=== PATIENT | male | born 1970 | race American Indian/Alaskan Native ===

== ENCOUNTER 2018-10-28 19:01 | Emergency (ER) | payer OTHER ==
[2018-10-28 19:20] VITALS: BP 136/81
[2018-10-28] MEDS ORDERED: NACL 0.9% 1000 ML 1,000 ML IV ONE (19:36)
[2018-10-28] MEDS ORDERED: DECADRON IV ONE (19:36)
[2018-10-28] MEDS ORDERED: PEPCID IV ONE (19:36)
[2018-10-28] MEDS ORDERED: BENADRYL IV ONE (19:36)
--- NOTE | 2018-10-28 20:19 | Emergency Department Report ---
ED Allergic Reaction HPI - General Chief complaint: Allergic Reaction Stated complaint: ALLERGIC REACTION/SWOLLEN FACE Time Seen by Provider: 10/28/18 19:36 Source: patient Mode of arrival: Ambulatory Limitations: No Limitations - History of Present Illness Initial Comments: This is a 48-year-old male nontoxic, well nourished in appearance, no acute sig ns of distress presents to the ED with c/o of facial swelling and itching. Patient states he used a bread cream last night and then wake up this morning with facial swelling in the bread area and itching in that area. Patient denies any drooling, hoarseness or any other facial swelling. Patient denies any trauma. Patient denies any fever, chills, nausea, vomiting, chest pain, shortness of breath, headache, stiff neck, numbness or tingling. Patient denies any drug allergies or PMH. MD Complaint: allergic reaction, facial swelling -: Last night Exposure: other (bread cream) Severity: mild Treatment Prior to Arrival: none Previous Allergy History: none - Related Data Previous Rx's Medication Instructions Recorded Last Taken Type Prednisone [predniSONE 10 mg 10 mg PO .TAPER #1 tab.ds.pk 10/28/18 Unknown Rx (6-Day Pack, 21 Tabs)] diphenhydrAMINE [Benadryl CAP] 25 mg PO Q6HR PRN #12 capsule 10/28/18 Unknown Rx Allergies Allergy/AdvReac Type Severity Reaction Status Date / Time No Known Allergies Allergy Unverified 10/28/18 19:20 ED Review of Systems ROS: Stated complaint: ALLERGIC REACTION/SWOLLEN FACE Other details as noted in HPI Constitutional: denies: chills, fever Eyes: denies: eye pain, eye discharge, vision change ENT: denies: ear pain, throat pain Respiratory: denies: cough, shortness of breath, wheezing Cardiovascular: denies: chest pain, palpitations Endocrine: no symptoms reported Gastrointestinal: denies: abdominal pain, nausea, diarrhea Genitourinary: denies: urgency, dysuria Musculoskeletal: denies: back pain, joint swelling, arthralgia Skin: denies: rash, lesions Neurological: denies: headache, weakness, paresthesias Psychiatric: denies: anxiety, depression Hematological/Lymphatic: denies: easy bleeding, easy bruising ED Past Medical Hx - Past Medical History Previous Medical History?: No - Surgical History Past Surgical History?: No - Social History Smoking Status: Current Every Day Smoker Substance Use Type: None - Medications Home Medications: Home Medications Medication Instructions Recorded Confirmed Last Taken Type Prednisone [predniSONE 10 mg 10 mg PO .TAPER #1 tab.ds.pk 10/28/18 Unknown Rx (6-Day Pack, 21 Tabs)] diphenhydrAMINE [Benadryl CAP] 25 mg PO Q6HR PRN #12 capsule 10/28/18 Unknown Rx ED Physical Exam - General Limitations: No Limitations General appearance: alert, in no apparent distress - Head Head exam: Present: atraumatic, normocephalic - Eye Eye exam: Present: normal appearance - Expanded ENT Exam Expanded Ear exam: Present: normal external inspection Mouth exam: Present: normal external inspection. Absent: drooling, trismus, muffled voice Teeth exam: Present: normal inspection Throat exam: Positive: normal inspection, other (uvula midline. Slight swelling to upper mandbile bread area. Normal oropharynx with no angioedema.). Negative: tonsillar erythema, tonsillomegaly, tonsillar exudate, R peritonsillar mass, L peritonsillar mass - Neck Neck exam: Present: normal inspection, full ROM. Absent: tenderness, meningismus, lymphadenopathy - Respiratory Respiratory exam: Present: normal lung sounds bilaterally. Absent: respiratory distress, wheezes, rales, rhonchi, stridor, chest wall tenderness, accessory muscle use, decreased breath sounds, prolonged expiratory - Cardiovascular Cardiovascular Exam: Present: regular rate, normal rhythm, normal heart sounds. Absent: bradycardia, tachycardia, irregular rhythm, systolic murmur, diastolic murmur, rubs, gallop ED Course Vital Signs 10/28/18 10/28/18 19:16 19:18 Temperature 99.0 F 99 F Pulse Rate 80 80 Respiratory 18 18 Rate Blood Pressure 138/81 136/81 O2 Sat by Pulse 98 98 Oximetry - Reevaluation(s) Reevaluation #1: 10/28/18 20:20 Patient is speaking in full sentences with no signs of distress noted. Reevaluation #2: 10/28/18 22:20 Patient was observed for a few hours. Swelling has decreased. PAtietn stated feels much better. Cousin at bedside and stated will drive the patient home after dsicharge. ED Medical Decision Making - Medical Decision Making This is a 48-year-old male that presents with allergic reaction. Patient is stable was examined by me. There is no facial swelling. No angioedema. There is no cellulitis. No hoarseness. Patient received 1 L normal saline, Benadryl, Decadron, and Pepcid in the ED IV. Patient was instructed not to operate any machinery after discharge due to possible drowsiness of Benadryl. Patient stated that a family member will drive patient home after discharge. Patient is discharged with prednisone and Benadryl. Patient was referred to Follow-up with a primary care doctor in 3-5 days or if symptoms worsen and continue return to emergency room as soon as possible. At time of discharge, the patient does not seem toxic or ill in appearance. No acute signs of distress noted. Patient agrees to discharge treatment plan of care. No further questions noted by the patient. Critical care attestation.: If time is entered above; I have spent that time in minutes in the direct care of this critically ill patient, excluding procedure time. ED Disposition Clinical Impression: Allergic reaction Qualifiers: Encounter type: initial encounter Qualified Code(s): T78.40XA - Allergy, unspecified, initial encounter Disposition: DC-01 TO HOME OR SELFCARE Is pt being admited?: No Does the pt Need Aspirin: No Condition: Stable Instructions: Anaphylaxis (ED), Angioedema (ED) Additional Instructions: Follow-up with a primary care doctor in 3-5 days or if symptoms worsen and cont inue return to emergency room as soon as possible. Prescriptions: diphenhydrAMINE [Benadryl CAP] 25 mg PO Q6HR PRN #12 capsule PRN Reason: itching Prednisone [predniSONE 10 mg (6-Day Pack, 21 Tabs)] 10 mg PO .TAPER #1 tab.ds.pk Referrals: WINSTON GREENE [Primary Care Provider] - 3-5 Days PRIMARY CARE, [Referring] - 3-5 Days DAWSON SMITH MD [Staff Physician] - 3-5 Days [facility] [Outside] - 3-5 Days Forms: Work/School Release Form(ED)
== END 2018-10-28 22:39 | disposition home or self-care (01) ==
LOC: ED 19:01
DX: T78.40XA Allergy, unspecified, initial encounter (principal); X58.XXXA Exposure to other specified factors, initial encounter; F17.200 Nicotine dependence, unspecified, uncomplicated
CPT/HCPCS: 96374; 96375; 99282; J1100; J1200; J7030

== ENCOUNTER 2019-02-20 21:53 | Inpatient (IN) | payer BC, OTHER ==
--- NOTE | 2019-02-20 22:20 | Emergency Department Report ---
Blank Doc - Documentation Documentation: This is a 48-year-old male that presents with blood in stool. Denies any abdo howie pain or n/v. Stated has been taking Motrin for ankle pain. This initial assessment/diagnostic orders/clinical plan/treatment(s) is/are subject to change based on patient's health status, clinical progression and re- assessment by fellow clinical providers in the ED. Further treatment and workup at subsequent clinical providers discretion. Patient/guardians urged not to elope from the ED as their condition may be serious if not clinically assessed and managed. Initial orders include: 1- Patient sent to MAIN ED for further evaluation and treatment 2-labs
[2019-02-20 22:52] LABS: Basophils # (Auto) 0.1 K/mm3 (0.0-0.1); Basophils % (Auto) 0.8 % (0.0-1.8); Hematocrit 29.6 % (35.5-45.6); Hemoglobin 10.7 gm/dl (11.8-15.2); Lymphocytes # (Auto) 0.8 K/mm3 (1.2-5.4); Mean Corpuscular HGB Conc 36 % (32-34); Mean Corpuscular Volume 88 fl (84-94); Monocytes # (Auto) 0.8 K/mm3 (0.0-0.8); Platelet Count 316 K/mm3 (140-440); Red Blood Count 3.35 M/mm3 (3.65-5.03)
[2019-02-20 23:02] LABS: INR 0.99 (0.87-1.13)
[2019-02-20 23:03] LABS: Partial Thromboplastin Time 27.5 Sec. (24.2-36.6)
[2019-02-20 23:08] LABS: Alanine Aminotransferase 21 units/L (7-56); Albumin 3.6 g/dL (3.9-5); BUN/Creatinine Ratio 16; Blood Urea Nitrogen 14 mg/dL (9-20); Calcium 9.6 mg/dL (8.4-10.2); Hemolysis Index 2
--- NOTE | 2019-02-20 23:40 | Emergency Department Report ---
ED GI Bleed HPI - General Chief complaint: GI Bleed Stated complaint: BLOODY STOOL Time Seen by Provider: 02/20/19 22:19 Source: patient, RN notes reviewed Mode of arrival: Ambulatory Limitations: No Limitations - History of Present Illness Initial comments: This is a pleasant 48-year-old gentleman who is not known to this provider previously. He does not have a local primary care doctor. Denies chronic medical conditions. He recently started taking NSAIDs last week for a left ankle sprain, strain. Today, he presents to the emergency room with a complaint of one day painless bright red blood per rectum. He endorses at every bowel movement he has is filled with bright red blood. He feels mildly dizzy. Mildly lightheaded. No physical pain at this time. There is no vomiting of blood. His symptoms are constant, worse with physical exertion, decreased with rest, and also increase with defecation. He is not bleeding from elsewhere. complaint: gross hematochezia -: Sudden, hour(s) Radiation: none Quality: painless Improves with: none Worsens with: none - Related Data Previous Rx's Medication Instructions Recorded Last Taken Type Prednisone [predniSONE 10 mg 10 mg PO .TAPER #1 tab.ds.pk 10/28/18 Unknown Rx (6-Day Pack, 21 Tabs)] diphenhydrAMINE [Benadryl CAP] 25 mg PO Q6HR PRN #12 capsule 10/28/18 Unknown Rx Allergies Allergy/AdvReac Type Severity Reaction Status Date / Time No Known Allergies Allergy Unverified 10/28/18 19:20 ED Review of Systems ROS: Stated complaint: BLOODY STOOL Other details as noted in HPI Constitutional: denies: fever Eyes: denies: vision change ENT: denies: epistaxis Respiratory: denies: cough Cardiovascular: denies: chest pain Gastrointestinal: hematochezia. denies: nausea, vomiting, hematemesis, melena Genitourinary: denies: testicular pain Musculoskeletal: denies: back pain Skin: denies: lesions Neurological: denies: weakness Psychiatric: anxiety ED Past Medical Hx - Past Medical History Previous Medical History?: No - Surgical History Past Surgical History?: No - Social History Smoking Status: Never Smoker Substance Use Type: None - Medications Home Medications: Home Medications Medication Instructions Recorded Confirmed Last Taken Type Prednisone [predniSONE 10 mg 10 mg PO .TAPER #1 tab.ds.pk 10/28/18 Unknown Rx (6-Day Pack, 21 Tabs)] diphenhydrAMINE [Benadryl CAP] 25 mg PO Q6HR PRN #12 capsule 10/28/18 Unknown Rx ED Physical Exam - General Limitations: No Limitations General appearance: alert, in no apparent distress - Head Head exam: Present: atraumatic, normocephalic - Eye Eye exam: Present: normal appearance, EOMI - ENT ENT exam: Present: normal exam, normal orophraynx, mucous membranes moist, normal external ear exam - Neck Neck exam: Present: normal inspection, full ROM. Absent: tenderness, meningismus - Respiratory Respiratory exam: Present: normal lung sounds bilaterally. Absent: respiratory distress - Cardiovascular Cardiovascular Exam: Present: normal rhythm, tachycardia, normal heart sounds. Absent: bradycardia, systolic murmur, diastolic murmur, rubs, gallop - GI/Abdominal GI/Abdominal exam: Present: soft. Absent: distended, tenderness, guarding, rebound, rigid, pulsatile mass - Rectal Rectal exam: Present: normal inspection, normal rectal tone, heme (+) stool, bloody stool, other (chaperoned by nurse Wilbert Jaimes) - Extremities Exam Extremities exam: Present: normal inspection, full ROM, other (2+ pulses noted in the bilateral upper, lower extremities. Compartments soft. No long bony tenderness. The pelvis is stable.). Absent: pedal edema, calf tenderness - Back Exam Back exam: Present: normal inspection, full ROM. Absent: tenderness, CVA tenderness (R), CVA tenderness (L), paraspinal tenderness, vertebral tenderness - Neurological Exam Neurological exam: Present: alert, oriented X3, other (Extraocular movements intact. Tongue midline. No facial droop. Facial sensation intact to light touch in the V1, V2, V3 distribution bilaterally. 5 and 5 strength in 4 extremities.. Sensation is intact to light touch in 4 extremities.). Absent: motor sensory deficit - Psychiatric Psychiatric exam: Present: normal affect, normal mood - Skin Skin exam: Present: warm, dry, intact, normal color. Absent: rash ED Course Vital Signs 02/20/19 22:02 Temperature 98.7 F Pulse Rate 99 H Respiratory 20 Rate Blood Pressure 140/61 O2 Sat by Pulse 99 Oximetry - Reevaluation(s) Reevaluation #1: 02/20/19 23:[address] Whitaker of GI. He agrees to follow in consultation. Agrees with plan to admit. ED Medical Decision Making - Lab Data Result diagrams: 02/20/19 22:32 02/20/19 22:32 Vital Signs 02/20/19 22:02 Temperature 98.7 F Pulse Rate 99 H Respiratory 20 Rate Blood Pressure 140/61 O2 Sat by Pulse 99 Oximetry Lab Results 02/20/19 02/20/19 02/20/19 Range/Units 22:32 22:32 22:32 WBC 8.7 (4.5-11.0) K/mm3 RBC 3.35 L (3.65-5.03) M/mm3 Hgb 10.7 L (11.8-15.2) gm/dl Hct 29.6 L (35.5-45.6) % MCV 88 (84-94) fl MCH 32 (28-32) pg MCHC 36 H (32-34) % RDW 13.0 L (13.2-15.2) % Plt Count 316 (140-440) K/mm3 Lymph % (Auto) 9.0 L (13.4-35.0) % Woodson % (Auto) 9.0 H (0.0-7.3) % Eos % (Auto) 0.0 (0.0-4.3) % Baso % (Auto) 0.8 (0.0-1.8) % Lymph # 0.8 L (1.2-5.4) K/mm3 Woodson # 0.8 (0.0-0.8) K/mm3 Eos # 0.0 (0.0-0.4) K/mm3 Baso # 0.1 (0.0-0.1) K/mm3 Seg Neutrophils % 81.2 H (40.0-70.0) % Seg Neutrophils # 7.1 (1.8-7.7) K/mm3 PT 13.7 (12.2-14.9) Sec. INR 0.99 (0.87-1.13) APTT 27.5 (24.2-36.6) Sec. Sodium 136 L (137-145) mmol/L Potassium 4.5 (3.6-5.0) mmol/L Chloride 99.3 (98-107) mmol/L Carbon Dioxide 26 (22-30) mmol/L Anion Gap 15 mmol/L BUN 14 (9-20) mg/dL Creatinine 0.9 (0.8-1.5) mg/dL Estimated GFR > 60 ml/min BUN/Creatinine Ratio 16 % Glucose 120 H (75-100) mg/dL Calcium 9.6 (8.4-10.2) mg/dL Total Bilirubin 0.20 (0.1-1.2) mg/dL AST 19 (5-40) units/L ALT 21 (7-56) units/L Alkaline Phosphatase 89 (35-129) units/L Total Protein 6.8 (6.3-8.2) g/dL Albumin 3.6 L (3.9-5) g/dL Albumin/Globulin Ratio 1.1 % - EKG Data -: EKG Interpreted by Me EKG shows normal: sinus rhythm Rate: normal - EKG Data When compared to previous EKG there are: previous EKG unavailable 02/21/19 00:09 This is a sinus rhythm, 89 bpm, left axis deviation, QTC within normal limits, borderline poor R-wave progression, this is an abnormal EKG, his EKG is not consistent with ST elevation myocardial infarction, there is no prior EKG available for comparison. - Medical Decision Making Differential diagnosis, including not limited to: Lower GI bleed, diverti culosis, angiodysplasia, malignancy, upper GI bleed Assessment and plan: 48-year-old gentleman with hemoglobin of 10, hematocrit of 29, obvious blood on rectal examination, hemodynamically stable. We have recommended admission to the hospital for observation, an urgent gastroenterology consultation for presumed colonoscopy. The patient is amenable to this plan of care. The patient does not have any taoism occlusions from receiving packed red blood cell transfusion. IV access has been ordered. EKG, IV fluids have been ordered. Patient will be made nothing by mouth after midnight. Gastroenterology is paged. Hospital physician, Dr. Funmilayo Hanna has graciously accepted the patient to the medical service for presumed lower GI bleed. Critical care attestation.: If time is entered above; I have spent that time in minutes in the direct care of this critically ill patient, excluding procedure time. ED Disposition Clinical Impression: Lower GI bleed Disposition: OP ADMIT IP TO THIS HOSP Is pt being admited?: Yes Condition: Good Referrals: WINSTON GREENE MD [Primary Care Provider] - 3-5 Days Forms: Accompanied Note
[2019-02-20] MEDS ORDERED: NACL 0.9% 1000 ML 2,000 ML IV ONE (23:50)
[2019-02-20] MEDS ORDERED: PROTONIX IV ONE (23:58)
[2019-02-21] MEDS ORDERED: PERCOCET 5/325 PO PRN (00:41)
[2019-02-21] MEDS ORDERED: TYLENOL PO PRN (00:41)
[2019-02-21] MEDS ORDERED: DILAUDID IV PRN (00:41)
[2019-02-21] MEDS ORDERED: ZOFRAN IV PRN (00:41)
[2019-02-21] MEDS ORDERED: SODIUM CHLORIDE FLUSH SYRINGE 10 ML IV PRN (00:41)
--- NOTE | 2019-02-21 00:46 | History and Physical Report ---
History of Present Illness Date of examination: 02/21/19 Chief complaint: "I have blood in my stool" History of present illness: Patient is a 48-year-old -[place] male with no known past medical history who presented to the ED on account of few hours history of passage of bloody stool. He described it as bright red without clots. He has associated dizziness but no syncope or loss of consciousness. He denies abdominal pain, constipation, diarrhea, nausea or vomiting. No chest pain, shortness of breath, palpitation, cough, fever or chills. Patient stated that he injured his left ankle at work and he was given ibuprofen for pain by his primary care physician which he has been taking for about 2 weeks. No prior history of presenting complaint. Past History Past Medical History: No medical history Past Surgical History: No surgical history Social history: smoking (patient is smoked cigarettes for 6 months and quit a year ago. He denies alcohol or illicit drug use) Family history: hypertension (mother. No known family history of diabetes or heart disease) Medications and Allergies Allergies Allergy/AdvReac Type Severity Reaction Status Date / Time No Known Allergies Allergy Verified 02/21/19 00:48 Home Medications Medication Instructions Recorded Confirmed Last Taken Type Prednisone [predniSONE 10 mg 10 mg PO .TAPER #1 tab.ds.pk 10/28/18 Unknown Rx (6-Day Pack, 21 Tabs)] diphenhydrAMINE [Benadryl CAP] 25 mg PO Q6HR PRN #12 capsule 10/28/18 Unknown Rx Review of Systems All systems: negative (except as documented in the HPI, 14 point system reviewed were negative) Exam - Constitutional Vitals: Temp Pulse Resp BP Pulse Ox 98.7 F 99 H 16 140/61 99 02/20/19 22:02 02/20/19 22:02 02/21/19 00:37 02/20/19 22:02 02/20/19 22:02 General appearance: Present: no acute distress - EENT Eyes: Present: PERRL, EOM intact ENT: hearing intact, clear oral mucosa - Neck Neck: Present: supple, normal ROM - Respiratory Respiratory effort: normal Respiratory: bilateral: CTA - Cardiovascular Rhythm: regular Heart Sounds: Present: S1 & S2 - Extremities Extremities: pulses symmetrical Extremity abnormal: edema (left ankle) - Abdominal General gastrointestinal: Present: soft, non-tender, non-distended, normal bowel sounds Male genitourinary: Present: deferred - Rectal Rectal Exam: deferred - Integumentary Integumentary: Present: clear, warm, dry - Musculoskeletal Musculoskeletal: strength equal bilaterally - Psychiatric Psychiatric: appropriate mood/affect, intact judgment & insight - Neurologic Neurologic: CNII-XII intact Results - Labs CBC & Chem 7: 02/20/19 22:32 02/20/19 22:32 Labs: Laboratory Last Values WBC 8.7 K/mm3 (4.5-11.0) 02/20/19 22:32 RBC 3.35 M/mm3 (3.65-5.03) L 02/20/19 22: Hgb 10.7 gm/dl (11.8-15.2) L 02/20/19 22: Hct 29.6 % (35.5-45.6) L 02/20/19 22:32 MCV 88 fl (84-94) 02/20/19 22: MCH 32 pg (28-32) 02/20/19 22: MCHC 36 % (32-34) H 02/20/19 22:32 RDW 13.0 % (13.2-15.2) L 02/20/19 22:32 Plt Count 316 K/mm3 (140-440) 02/20/19 22:32 Lymph % (Auto) 9.0 % (13.4-35.0) L 02/20/19 22:32 Hancock % (Auto) 9.0 % (0.0-7.3) H 02/20/19 22: Eos % (Auto) 0.0 % (0.0-4.3) 02/20/19 22: Baso % (Auto) 0.8 % (0.0-1.8) 02/20/19 22: Lymph # 0.8 K/mm3 (1.2-5.4) L 02/20/19 22:32 Hancock # 0.8 K/mm3 (0.0-0.8) 02/20/19 22: Eos # 0.0 K/mm3 (0.0-0.4) 02/20/19 22: Baso # 0.1 K/mm3 (0.0-0.1) 02/20/19 22:32 Seg Neutrophils % 81.2 % (40.0-70.0) H 02/20/19 22:32 Seg Neutrophils # 7.1 K/mm3 (1.8-7.7) 02/20/19 22:32 PT 13.7 Sec. (12.2-14.9) 02/20/19 22:32 INR 0.99 (0.87-1.13) 02/20/19 22:32 APTT 27.5 Sec. (24.2-36.6) 02/20/19 22:32 Sodium 136 mmol/L (137-145) L 02/20/19 22:32 Potassium 4.5 mmol/L (3.6-5.0) 02/20/19 22:32 Chloride 99.3 mmol/L (98-107) 02/20/19 22:32 Carbon Dioxide 26 mmol/L (22-30) 02/20/19 22:32 15 mmol/L 02/20/19 22:32 BUN 14 mg/dL (9-20) 02/20/19 22:32 0.9 mg/dL (0.8-1.5) 02/20/19 22:32 Estimated GFR > 60 ml/min 02/20/19 22:32 16 % 02/20/19 22:32 Glucose 120 mg/dL (75-100) H 02/20/19 22:32 Calcium 9.6 mg/dL (8.4-10.2) 02/20/19 22:32 0.20 mg/dL (0.1-1.2) 02/20/19 22:32 AST 19 units/L (5-40) 02/20/19 22:32 ALT 21 units/L (7-56) 02/20/19 22:32 89 units/L (35-129) 02/20/19 22:32 6.8 g/dL (6.3-8.2) 02/20/19 22:32 3.6 g/dL (3.9-5) L 02/20/19 22:32 1.1 % 02/20/19 22:32 Assessment and Plan Assessment and plan: Hematochezia -On IV Protonix -H&H stable, will monitor serially and transfuse patient as needed -GI consulted in the ED DVT prophylaxis with SCD Disposition: For discharge when medically stable Time spent: 32 minutes
[2019-02-21] MEDS: NACL 0.9% 1000 ML 1,000 ML IV SCH ×3 (04:20→21:58)
[2019-02-21 04:59] LABS: Hematocrit 26.6 % (35.5-45.6); Hemoglobin 9.1 gm/dl (11.8-15.2)
[2019-02-21] MEDS: SODIUM CHLORIDE FLUSH SYRINGE 10 ML IV SCH ×2 (09:30→22:20)
[2019-02-21] MEDS: PROTONIX IV SCH ×2 (09:30→21:56)
[2019-02-21 09:52] LABS: Hematocrit 26.2 % (35.5-45.6); Hemoglobin 9.2 gm/dl (11.8-15.2)
--- NOTE | 2019-02-21 10:06 | Gastroenterology Consultation ---
<AMBROSE MARTINEZ - Last Filed: 02/21/19 10:06> History of Present Illness - Reason for Consult Consult date: 02/21/19 [facility] Requesting physician: FILI JARQUIN - History of Present Illness Patient is a 48 y/o male who presented to ED with c/o rectal bleeding with associated dizziness to which GI has been consulted. This morning patient was resting in bed w/o distress. He reports an acute onset of rectal bleeding that began yesterday with multiple episodes of bright red blood with clots. No active signs of bleeding this am. No hematemesis or melena. Denies fever, CP, SOB, wt loss, abdominal pain, N/V, diarrhea, or constipation. No rectal pain or recent trauma. Has no hx of prior GI bleeding, PUD, or liver disease. Has been taking Ibuprofen x 2 weeks from recent ankle injury. No previous EGD/colonoscopy. No Fhx of GI cancers. Past History Past Medical History: No medical history Past Surgical History: No surgical history Social history: other (former smoker (quit 1 yr ago)). denies: alcohol abuse Family history: hypertension (mother. No known family history of diabetes or heart disease) Medications and Allergies Allergies Allergy/AdvReac Type Severity Reaction Status Date / Time No Known Allergies Allergy Verified 02/21/19 00:48 Home Medications Medication Instructions Recorded Confirmed Last Taken Type Prednisone [predniSONE 10 mg 10 mg PO .TAPER #1 tab.ds.pk 10/28/18 Unknown Rx (6-Day Pack, 21 Tabs)] diphenhydrAMINE [Benadryl CAP] 25 mg PO Q6HR PRN #12 capsule 10/28/18 Unknown Rx Active Meds: Active Medications Acetaminophen (Tylenol) 650 mg PO Q4H PRN PRN Reason: Pain MILD(1-3)/Fever >100.5/DESAI Hydromorphone HCl (Dilaudid) 0.5 mg IV Q3H PRN PRN Reason: Pain , Severe (7-10) Sodium Chloride (Nacl 0.9% 1000 Ml) 1,000 mls @ 75 mls/hr IV DIRECT LEE Last Admin: 02/21/19 09:34 Dose: 75 mls/hr Documented by: Ondansetron HCl (Zofran) 4 mg IV Q8H PRN PRN Reason: Nausea And Vomiting Oxycodone/Acetaminophen (Percocet 5/325) 1 tab PO Q6H PRN PRN Reason: Pain, Moderate (4-6) Pantoprazole Sodium (Protonix) 40 mg IV BID [facility] Last Admin: 02/21/19 09:30 Dose: 40 mg Documented by: Sodium Chloride (Sodium Chloride Flush Syringe 10 Ml) 10 ml IV BID [facility] Last Admin: 02/21/19 09:30 Dose: 10 ml Documented by: Sodium Chloride (Sodium Chloride Flush Syringe 10 Ml) 10 ml IV PRN PRN PRN Reason: LINE FLUSH medications reviewed/updated as required Review of Systems - Review of Systems All systems: negative Gastrointestinal: hematochezia Exam - Constitutional Vital Signs: Temp Pulse Resp BP Pulse Ox 98.2 F 67 20 100/44 98 02/21/19 06:00 02/21/19 06:00 02/21/19 06:00 02/21/19 06:00 02/21/19 02:19 General appearance: no acute distress - Respiratory Respiratory: bilateral: CTA - Cardiovascular Rhythm: regular - Gastrointestinal General gastrointestinal: Present: soft, non-tender, non-distended, normal bowel sounds - Neurologic Neurological: alert and oriented x3 - Labs CBC & Chem 7: 02/21/19 09:26 02/20/19 22:32 Lab Results: Laboratory Results - last 24 hr 02/20/19 02/20/19 02/20/19 22:32 22:32 22:32 WBC 8.7 RBC 3.35 L Hgb 10.7 L Hct 29.6 L MCV 88 MCH 32 MCHC 36 H RDW 13.0 L Plt Count 316 Lymph % (Auto) 9.0 L [place] % (Auto) 9.0 H Eos % (Auto) 0.0 Baso % (Auto) 0.8 Lymph # 0.8 L [place] # 0.8 Eos # 0.0 Baso # 0.1 Seg Neutrophils % 81.2 H Seg Neutrophils # 7.1 PT 13.7 INR 0.99 APTT 27.5 Sodium 136 L Potassium 4.5 Chloride 99.3 Carbon Dioxide 26 Anion Gap 15 BUN 14 Creatinine 0.9 Estimated GFR > 60 BUN/Creatinine Ratio 16 Glucose 120 H Calcium 9.6 Total Bilirubin 0.20 AST 19 ALT 21 Alkaline Phosphatase 89 Total Protein 6.8 Albumin 3.6 L Albumin/Globulin Ratio 1.1 Blood Type Antibody Screen AMISH Antibody Screen 02/21/19 02/21/19 02/21/19 00:22 04:36 09:26 WBC RBC Hgb 9.1 L 9.2 L Hct 26.6 L 26.2 L MCV MCH MCHC RDW Plt Count Lymph % (Auto) [place] % (Auto) Eos % (Auto) Baso % (Auto) Lymph # [place] # Eos # Baso # Seg Neutrophils % Seg Neutrophils # PT INR APTT Sodium Potassium Chloride Carbon Dioxide Anion Gap BUN Creatinine Estimated GFR BUN/Creatinine Ratio Glucose Calcium Total Bilirubin AST ALT Alkaline Phosphatase Total Protein Albumin Albumin/Globulin Ratio Blood Type O POSITIVE Antibody Screen TNR AMISH Antibody Screen Negative Assessment and Plan 1.GI bleed 2.acute blood loss anemia -BUN WNL (14) -LFTs WNL -INR 0.99 -H/H 9.2/26.2-trended down but stable -continue to monitor H/H and transfuse as needed -hold blood thinning medications -Patient reports an acute onset of rectal bleeding yesterday with bright red bl ood with clots. No hematemesis, melena, or abd pain. -no active signs of bleeding this am- currently HD stable -etiology-most likely a lower source (given history possibly diverticular in nature? vs other) -will schedule for a colonoscopy +/- EGD tomorrow for further evaluation -okay for clears today then NPO after MN -continue PPI and supportive care -if overt bleeding develops, recommend stat CTA vs bleeding scan -will follow <PAULY GELLER - Last Filed: 02/21/19 12:42> Medications and Allergies Active Meds: Active Medications Acetaminophen (Tylenol) 650 mg PO Q4H PRN PRN Reason: Pain MILD(1-3)/Fever >100.5/[place]AI Hydromorphone HCl (Dilaudid) 0.5 mg IV Q3H PRN PRN Reason: Pain , Severe (7-10) Sodium Chloride (Nacl 0.9% 1000 Ml) 1,000 mls @ 75 mls/hr IV DIRECT [facility] Last Admin: 02/21/19 09:34 Dose: 75 mls/hr Documented by: Ondansetron HCl (Zofran) 4 mg IV Q8H PRN PRN Reason: Nausea And Vomiting Oxycodone/Acetaminophen (Percocet 5/325) 1 tab PO Q6H PRN PRN Reason: Pain, Moderate (4-6) Pantoprazole Sodium (Protonix) 40 mg IV BID [facility] Last Admin: 02/21/19 09:30 Dose: 40 mg Documented by: Sodium Chloride (Sodium Chloride Flush Syringe 10 Ml) 10 ml IV BID [facility] Last Admin: 02/21/19 09:30 Dose: 10 ml Documented by: Sodium Chloride (Sodium Chloride Flush Syringe 10 Ml) 10 ml IV PRN PRN PRN Reason: LINE FLUSH Exam - Constitutional Vital Signs: Temp Pulse Resp BP Pulse Ox 98.2 F 67 20 100/44 98 02/21/19 06:00 02/21/19 06:00 02/21/19 06:00 02/21/19 06:00 02/21/19 02:19 - Labs CBC & Chem 7: 02/21/19 09:26 02/20/19 22:32 Lab Results: Laboratory Results - last 24 hr 02/20/19 02/20/19 02/20/19 22:32 22:32 22:32 WBC 8.7 RBC 3.35 L Hgb 10.7 L Hct 29.6 L MCV 88 MCH 32 MCHC 36 H RDW 13.0 L Plt Count 316 Lymph % (Auto) 9.0 L [place] % (Auto) 9.0 H Eos % (Auto) 0.0 Baso % (Auto) 0.8 Lymph # 0.8 L [place] # 0.8 Eos # 0.0 Baso # 0.1 Seg Neutrophils % 81.2 H Seg Neutrophils # 7.1 PT 13.7 INR 0.99 APTT 27.5 Sodium 136 L Potassium 4.5 Chloride 99.3 Carbon Dioxide 26 Anion Gap 15 BUN 14 Creatinine 0.9 Estimated GFR > 60 BUN/Creatinine Ratio 16 Glucose 120 H Calcium 9.6 Total Bilirubin 0.20 AST 19 ALT 21 Alkaline Phosphatase 89 Total Protein 6.8 Albumin 3.6 L Albumin/Globulin Ratio 1.1 Blood Type Antibody Screen AMISH Antibody Screen 02/21/19 02/21/19 02/21/19 00:22 04:36 09:26 WBC RBC Hgb 9.1 L 9.2 L Hct 26.6 L 26.2 L MCV MCH MCHC RDW Plt Count Lymph % (Auto) [place] % (Auto) Eos % (Auto) Baso % (Auto) Lymph # [place] # Eos # Baso # Seg Neutrophils % Seg Neutrophils # PT INR APTT Sodium Potassium Chloride Carbon Dioxide Anion Gap BUN Creatinine Estimated GFR BUN/Creatinine Ratio Glucose Calcium Total Bilirubin AST ALT Alkaline Phosphatase Total Protein Albumin Albumin/Globulin Ratio Blood Type O POSITIVE Antibody Screen TNR AMISH Antibody Screen Negative Assessment and Plan Patient seen and examined. Agree with note above. No further bleeding since arriving to floor; vitals stable. will plan for colonoscopy tomorrow. rest as above.
[2019-02-21] MEDS ORDERED: GOLYTELY PO ONE (12:00)
[2019-02-21 17:04] LABS: Hematocrit 28.2 % (35.5-45.6); Hemoglobin 9.5 gm/dl (11.8-15.2)
--- NOTE | 2019-02-21 18:01 | Event Note ---
Date: 02/21/19 Patient seen and evaluated For colonoscopy tomorrow GI xonsult appreciated
[2019-02-21 22:45] LABS: Hematocrit 27.2 % (35.5-45.6); Hemoglobin 9.6 gm/dl (11.8-15.2)
[2019-02-22 05:06] LABS: Basophils # (Auto) 0.1 K/mm3 (0.0-0.1); Basophils % (Auto) 0.9 % (0.0-1.8); Eosinophils % (Auto) 0.9 % (0.0-4.3); Hematocrit 25.9 % (35.5-45.6); Hemoglobin 8.8 gm/dl (11.8-15.2); Lymphocytes # (Auto) 1.4 K/mm3 (1.2-5.4); Mean Corpuscular HGB Conc 34 % (32-34); Mean Corpuscular Volume 90 fl (84-94); Monocytes # (Auto) 0.6 K/mm3 (0.0-0.8); Monocytes % (Auto) 11.2 % (0.0-7.3); Platelet Count 278 K/mm3 (140-440); Red Cell Distribution Width 12.9 % (13.2-15.2)
[2019-02-22 05:25] LABS: Alanine Aminotransferase 17 units/L (7-56); BUN/Creatinine Ratio 9; Blood Urea Nitrogen 7 mg/dL (9-20); Calcium 9.1 mg/dL (8.4-10.2); Hemolysis Index 3
[2019-02-22] MEDS: SODIUM CHLORIDE FLUSH SYRINGE 10 ML IV SCH (09:56)
[2019-02-22] MEDS: PROTONIX IV SCH (09:56)
[2019-02-22] MEDS: NACL 0.9% 1000 ML 1,000 ML IV SCH (09:56)
[2019-02-22] MEDS ORDERED: NACL 0.9% 1000 ML 1,000 ML IV SCH (12:00)
[2019-02-22] MEDS ORDERED: XYLOCAINE 2% INFILTRATI ONE (15:25)
[2019-02-22] MEDS ORDERED: DIPRIVAN 10 MG/ML IV ONE ×2 (15:25)
[2019-02-22] MEDS ORDERED: VERSED ONE (15:25)
--- NOTE | 2019-02-22 15:35 | Anesthesia Consultation ---
Anesthesia Consult and Med Hx Date of service: 02/22/19 - Airway Anesthetic Teeth Evaluation: Good ROM Head & Neck: Adequate Mental/Hyoid Distance: Adequate Mallampati Class: Class II Intubation Access Assessment: Probably Good - Pulmonary Exam CTA: Yes - Cardiac Exam Cardiac Exam: No Murmur - Pre-Operative Health Status ASA Pre-Surgery Classification: ASA1 Proposed Anesthetic Plan: MAC - Pulmonary Hx Asthma: No COPD: No Hx Pneumonia: No - Endocrine Hx End Stage Renal Disease: No
--- NOTE | 2019-02-22 15:35 | Anesthesia Day of Surgery ---
Anesthesia Day of Surgery - Day of Surgery Patient Examined: Yes Patient H&P Reviewed: Yes Patient is NPO: Yes Beta Blockers: No
[2019-02-22] MEDS ORDERED: WATER FOR IRRIG STERILE IR ONE (15:49)
--- NOTE | 2019-02-22 16:08 | Operative Report ---
Operative Report Operative Report: Esophagogastroduodenoscopy Procedure Note Date of procedure: 02/22/2019 Endoscopist: Gopal Phelps Pre-op diagnosis: GI bleed Post-op diagnosis: Normal upper endoscopy Anesthesia: MAC Complications: No immediate complications Estimated blood loss: None Procedure: After consent was obtained, the patient was placed in the left lateral decubitus position. The olympus endoscope was inserted into the patient's mouth under direct vision, and advanced into the 2nd portion of the duodenum without difficulty. The patient tolerated the procedure well. The views of the mucosa were good. Patient's vital signs were monitored continuously throughout the procedure. Findings: The esophagus, stomach, and duodenum appeared normal. Impression: 1. Normal upper endoscopy Recommendations: -colonoscopy to follow
--- NOTE | 2019-02-22 16:21 | Operative Report ---
Operative Report Operative Report: Colonoscopy Procedure Note with Biopsies Date of procedure: 02/22/2019 Endoscopist: Gopal Phelps Pre-op diagnosis: GI bleed Post-op diagnosis: superficial and cratered ulcers throughout the colon Anesthesia: MAC Complications: No immediate complications Estimated blood loss: minimal Procedure: After consent was obtained, the patient was placed in the left lateral decubitus position. The olympus colonoscope was inserted into the patient's rectum under direct vision, and advanced to the cecum without difficulty. The patient tolerated the procedure well. The views of the mucosa were poor. The quality of prep was poor. The patient's vital signs were monitored continuously throughout the procedure. Findings: There were multiple superficial and cratered ulcers in a skipped pattern throughout the colon (primarily in transverse and right side of colon); there was sparring of the rectum and sigmoid colon. No high risk lesions or blood was seen during the procedure. There was solid brown stool in portions of the colon and in the entire cecum preventing detailed examination. Biopsies were obtained throughout the colon. Impression: 1. Multiple ulcerations (superficial and cratered) in skipping pattern in the colon. Findings suspicious for possible crohn's disease. Biopsies were obt ained (evaluate for possible IBD, r/o infectious or other etiology). 2. Poor prep; no blood or high risk lesions seen in the colon otherwise. Recommendations: -follow-up pathology -no nsaid's -cipro/flagyl course x 7 days upon discharge -follow-up in GI clinic in 1 week Patient can be discharged from GI stand point with close follow-up in clinic as above. Will sign off, please call as needed or with questions
--- NOTE | 2019-02-22 17:20 | Discharge Summary ---
Providers - Providers Date of Admission: 02/21/19 00:42 Date of discharge: 02/22/19 Attending physician: WERNER VELÁZQUEZ 02/20/19 23:50 Consult to Physician [CONS] Urgent Comment: Dr. Schulte spoke with Dr. Lozano @ [id number] Consulting Provider: SCOTT LOZANO Physician Instructions: Reason For Exam: lgib Primary care physician: WINSTON GREENE Hospitalization Condition: Good Hospital course: Hematochezia Resolved -H&H stable, will monitor serially and transfuse patient as needed -GI consulted Colonoscopy findings There were multiple superficial and cratered ulcers in a skipped pattern throughout the colon (primarily in transverse and right side of colon); there was sparring of the rectum and sigmoid colon. No high risk lesions or blood was seen during the procedure. There was solid brown stool in portions of the colon and in the entire cecum preventing detailed examination. Biopsies were obtained throughout the colon. Impression: 1. Multiple ulcerations (superficial and cratered) in skipping pattern in the colon. Findings suspicious for possible crohn's disease. Biopsies were obtained (evaluate for possible IBD, r/o infectious or other etiology). 2. Poor prep; no blood or high risk lesions seen in the colon otherwise. Recommendations: -follow-up pathology -no nsaid's -cipro/flagyl course x 7 days upon discharge -follow-up in GI clinic in 1 week Discharge diagnosis Lower GI bleed Crohn's disease Anemia DVT prophylaxis with SCD Disposition: For discharge when medically stable Disposition: DC-01 TO HOME OR SELFCARE Core Measure Documentation - Palliative Care Palliative Care/ Comfort Measures: Not Applicable - Core Measures Any of the following diagnoses?: none Exam - Constitutional Vitals: Temp Pulse Resp BP Pulse Ox 98.6 F 72 15 120/57 100 02/22/19 15:28 02/22/19 16:35 02/22/19 16:35 02/22/19 16:35 02/22/19 16:35 General appearance: Present: no acute distress, well-nourished - EENT Eyes: Present: PERRL ENT: hearing intact, clear oral mucosa - Neck Neck: Present: supple, normal ROM - Respiratory Respiratory effort: normal Respiratory: bilateral: CTA - Cardiovascular Heart rate: 76 Rhythm: regular Heart Sounds: Present: S1 & S2. Absent: rub, click - Extremities Extremities: no ischemia, pulses intact, pulses symmetrical, No edema Peripheral Pulses: within normal limits - Abdominal General gastrointestinal: Present: soft, non-tender, non-distended, normal bowel sounds Male genitourinary: Present: normal - Rectal Rectal Exam: deferred - Integumentary Integumentary: Present: clear, warm, dry - Musculoskeletal Musculoskeletal: gait normal, strength equal bilaterally - Psychiatric Psychiatric: appropriate mood/affect, intact judgment & insight - Neurologic Neurologic: CNII-XII intact, moves all extremities Plan Activity: no restrictions Diet: regular Follow up with: WINSTON GREENE MD [Primary Care Provider] - 3-5 Days PAULY GELLER MD [Staff Physician] - 7 Days Forms: Accompanied Note
[2019-02-22 17:37] VITALS: BP 108/46
== END 2019-02-22 18:55 | disposition home or self-care (01) | DRG 386 ==
LOC: ED 21:53 → 3A 02-21 00:42
PROVIDERS: ADMIT Internal Medicine; ATTEND Internal Medicine
PROC: 0DJ08ZZ Inspection of Upper Intestinal Tract, Via Natural or Artificial Opening Endoscopic (ICD-10-PCS; principal; 2019-02-22)
PROC: 0DBE8ZX Excision of Large Intestine, Via Natural or Artificial Opening Endoscopic, Diagnostic (ICD-10-PCS; 2019-02-22)
DX: K50.911 Crohn's disease, unspecified, with rectal bleeding (principal); K63.3 Ulcer of intestine; D62 Acute posthemorrhagic anemia; Z87.891 Personal history of nicotine dependence; Z82.49 Family history of ischemic heart disease and other diseases of the circulatory system; Z79.899 Other long term (current) drug therapy
CPT/HCPCS: 36415; 80053; 82271; 85014; 85018; 85025; 85610; 85730; 86850; 86900; 86901; 88305; 93005; 93010; 96374; 99285; G0378; C9113; J2250; J2704; J7030

== ENCOUNTER 2019-05-21 01:29 | Emergency (ER) | payer BC ==
[2019-05-21 01:40] VITALS: BP 148/70
[2019-05-21] MEDS ORDERED: FUL-GLO OP ONE (07:14)
[2019-05-21] MEDS ORDERED: TETRACAINE 0.5% OU ONE (07:15)
--- NOTE | 2019-05-21 07:29 | Emergency Department Report ---
Eye Injury/Foreign Body - HPI Duration: 1 month Eye Location: Right Severity: Moderate Tetanus Status: Up to Date Eye Symptoms: Eye Pain: Yes, Blurred Vision: No, Eye Redness: Yes, Grinding/Hammering Metal: No, Contact Lens Use: No, Recalls Injury: No, Photophobia: Yes Other History: painful red eye x 1 month, drainage, feels like something is in it. saw eye dr 1 week ago; told pressures were normal and no foreign body, given maribell/poly/dex but states not improving. also has photophobia, no n/v ED Review of Systems ROS: Stated complaint: RT EYE REDNESS W/PAIN Other details as noted in HPI Comment: All other systems reviewed and negative Eyes: as per HPI ED Past Medical Hx - Past Medical History Previous Medical History?: No Hx Congestive Heart Failure: No Hx Diabetes: No Hx Asthma: No Hx COPD: No - Surgical History Past Surgical History?: No - Social History Smoking Status: Never Smoker Substance Use Type: None - Medications Home Medications: Home Medications Medication Instructions Recorded Confirmed Last Taken Type Prednisone [predniSONE 10 mg 10 mg PO .TAPER #1 tab.ds.pk 10/28/18 Unknown Rx (6-Day Pack, 21 Tabs)] diphenhydrAMINE [Benadryl CAP] 25 mg PO Q6HR PRN #12 capsule 10/28/18 Unknown Rx Ciprofloxacin HCl [Ciprofloxacin 750 mg PO BID #14 tablet 02/22/19 Unknown Rx TAB] Pantoprazole [Protonix] 40 mg PO QDAY #30 tablet 02/22/19 Unknown Rx metroNIDAZOLE [Flagyl] 500 mg PO Q8HR #21 tablet 02/22/19 Unknown Rx Erythromycin [Erythromycin Ophth 1 applic OD QID #1 tube 05/21/19 Unknown Rx Oint] Eye Injury Exam - Exam General: Vital signs noted. No distress. Alert and acting appropriately. Normal mood, affect. Noted conjunctival injection to R eye, no hyphema, no FB, slight drainage. No fluorescein uptake. ? small internal hordeolum to upper lid- ttp central lid noted. ENT normal. ED Course Vital Signs 05/21/19 01:39 Temperature 98.3 F Pulse Rate 56 L Respiratory 12 Rate Blood Pressure 148/70 O2 Sat by Pulse 99 Oximetry ED Medical Decision Making - Medical Decision Making eye pain x 1 mo ? internal hordeolum on exam- has ttp to upper lid and seems to be source of pain no fluorescein uptake normal IOP last week erythromycin ointment, warm compress, f/u ophth this week pt agrees - Differential Diagnosis ulcer/abrasion, keratitis, uveitis, unlikely glaucoma-normal IOP last week Critical care attestation.: If time is entered above; I have spent that time in minutes in the direct care of this critically ill patient, excluding procedure time. ED Disposition Clinical Impression: Internal hordeolum of right eye Qualifiers: Eyelid: upper Qualified Code(s): H00.021 - Hordeolum internum right upper eyelid Disposition: - TO HOME OR SELFCARE Is pt being admited?: No Condition: Good Instructions: [place] (ED) Prescriptions: Erythromycin [Erythromycin Ophth Oint] 1 applic OD QID #1 tube Referrals: PRIMARY CARE, [Primary Care Provider] - 3-5 Days COLLEEN BRUMFIELD MD [Staff Physician] - 3-5 Days Forms: Work/School Release Form(ED) Time of Disposition: 07:42
== END 2019-05-21 07:56 | disposition home or self-care (01) ==
LOC: ED 01:29
DX: H00.021 Hordeolum internum right upper eyelid (principal); Z79.899 Other long term (current) drug therapy
CPT/HCPCS: 99282